=== PATIENT | female | born 1965 | race Caucasian/White ===

== ENCOUNTER 2018-06-14 07:31 | Day surgery (SDC) | payer BC ==
[~2018-06-14] VITALS: Ht 165.1 cm; Wt 99.5 kg
[2018-06-14] MEDS ORDERED: EFFEXOR XR75 MG/CAP PO (07:58)
[2018-06-14] MEDS ORDERED: WELLBUTRIN SR150 M1 PO (07:59)
[2018-06-14] MEDS ORDERED: VOLTAREN 75 DR75 MG PO (07:59)
[2018-06-14] MEDS ORDERED: SYNTHROID0.175 MG PO (08:00)
[2018-06-14 08:14] VITALS: BP 150/96; PULSE 93; TEMP 97.8
[2018-06-14 09:25] VITALS: BP 144/84; PULSE 80; TEMP 98.7
--- NOTE | 2018-06-14 09:25 | NUR ---
Patient arrives to [facility] via cart, accompanied by Endo RN Keerthi. She is alert and oriented. Bedside report received. Patient ambulates with ease to chair in room. Monitoring applied - VSS and WNL on room air. Denies any pain, nausea, or need. brought to the bedside. Offered and receives water and a muffin - tolerates well. Call light in reach.
[2018-06-14 09:40] VITALS: BP 147/84; PULSE 73
--- NOTE | 2018-06-14 09:40 | NUR ---
Patient resting comfortably in room. VSS and WNL on room air. Denies any pain, nausea, or need.
[2018-06-14 09:55] VITALS: BP 158/83; PULSE 71
--- NOTE | 2018-06-14 09:55 | NUR ---
VSS and WNL on room air. Patient denies any pain, nausea, or need.
--- NOTE | 2018-06-14 10:00 | NUR ---
PIV removed with catheter intact and hemostasis achieved.
--- NOTE | 2018-06-14 10:04 | NUR ---
Discharge criteria has been met. Discharge instructions discussed, denies any questions, and verbalizes understanding. Changes to clothing independently.
--- NOTE | 2018-06-14 10:05 | NUR ---
Dr. Chong at the bedside.
--- NOTE | 2018-06-14 10:10 | NUR ---
Escorted to exit via wheelchair. Discharged to home with ride in private vehicle at 1010.
== END 2018-06-14 10:10 | disposition home or self-care (01) ==
LOC: SDCO 07:31
DX: Z12.11 Encounter for screening for malignant neoplasm of colon (principal); F32.9 Major depressive disorder, single episode, unspecified; E03.9 Hypothyroidism, unspecified; E66.9 Obesity, unspecified; Z88.2 Allergy status to sulfonamides
CPT/HCPCS: J2704

== ENCOUNTER → 2020-02-17 | Outpatient (CLI) | payer BC ==
[~2020-02-17] MED LIST: EFFEXOR XR75 MG/CAP PO; SYNTHROID0.175 MG PO; VOLTAREN 75 DR75 MG PO; WELLBUTRIN SR150 M1 PO
== END ==
LOC: ZCOL.LAB 15:59
DX: Z20.828 Contact with and (suspected) exposure to other viral communicable diseases (principal)